=== PATIENT | female | born 1960 | race Caucasian/White ===

== ENCOUNTER 2018-05-30 16:48 | Emergency (ER) | payer OTHER ==
[2018-05-30] MEDS ORDERED: PHENAZOPYRIDINE HCL 100 MG TABLET (FP) PO ONE (17:04)
[2018-05-30 17:05] VITALS: BP 135/83; PULSE 73; TEMP 98.8; BMI 29.0
--- NOTE | 2018-05-30 17:05 | PDOC ---
Rapid Medical Evaluation Medical Evaluation: 05/30/18 17:01 I have performed a brief in-person evaluation of this patient. The patient presents with a chief complaint of: Pelvic pain w/ dysuria x 2 days, similar to prior uti per pt. ? L flank pain. No n/v/f/c. H/o asthma, s/p hysterectomy remotely. No h/o renal stones Pertinent physical exam findings:Stable and in NAD w/ no CVAT I have ordered the following:ua/cx The patient will proceed to the ED for further evaluation. Discharge Disposition - Diagnosis Pelvic pain - Referrals - Patient Instructions - Post Discharge Activity
--- NOTE | 2018-05-30 17:32 | PDOC ---
History of Present Illness - General Chief Complaint: Urinary Problem Stated Complaint: ABDOMINAL PAIN Time Seen by Provider: 05/30/18 17:05 History Source: Patient Exam Limitations: Clinical Condition - History of Present Illness Initial Comments: 05/30/18 17:37 Patient with no significant past medical history presenting with complain of 2 day history of suprapubic and right pelvic pain symptoms of dysuria, urinary frequency and urgency. Patient with history of hysterectomy done 8 years ago .denies any other symptoms. Denies fever, chills, nausea or vomiting Timing/Duration: other (2days) Past History - Past Medical History Allergies/Adverse Reactions: Allergies Allergy/AdvReac Type Severity Reaction Status Date / Time No Known Allergies Allergy Verified 05/30/18 17:01 Home Medications: Ambulatory Orders Ciprofloxacin HCl [Cipro] 500 mg PO BID 5 Days #10 tablet 05/30/18 Phenazopyridine HCl [Pyridium] 100 mg PO TID 2 Days #6 tablet 05/30/18 Asthma: Yes COPD: No - Suicide/Smoking/Psychosocial Hx Smoking History: Never smoked Review of Systems - Review of Systems Able to Perform ROS?: Yes Is the patient limited Swedish proficient: No Constitutional: No: Chills, Diaphoresis, Fever, Loss of Appetite, Malaise, Night Sweats, Weakness, Weight Stable, Unintentional Wgt. Loss, Unexplained wgt Loss, Other HEENTM: No: Eye Pain, Blurred Vision, Tearing, Recent change in vision, Double Vision, Cataracts, Ear Pain, Ocular Prothesis, Ear Discharge, Nose Pain, Nose Congestion, Tinnitus, Nose Bleeding, Hearing Loss, Throat Pain, Throat Swelling , Mouth Pain, Dental Problems, Difficulty Swallowing, Mouth Swelling, Other Respiratory: No: Cough, Orthopnea, Shortness of Breath, SOB with Exertion, SOB at Rest, Stridor, Wheezing, Productive cough, Hemoptysis, Other Cardiac (ROS): No: Chest Pain, Edema, Irregular Heart Rate, Lightheadedness, Palpitations, Syncope, Chest Tightness, Other ABD/GI: No: Abdominal Distended, Abd. Pain w/ defecation, Blood Streaked Bowels , Constipated, Diarrhea, Difficulty Swallowing, Nausea, Poor Appetite, Poor Fluid Intake, Rectal Bleeding, Vomiting, Indigestion, Abdominal cramping, Tarry Stools, Other : Yes: See HPI, Burning, Dysuria, Frequency, Flank Pain (right), Pain ( suprapubic), Urgency. No: Discharge, Incontinence All Other Systems: Reviewed and Negative *Physical Exam - Vital Signs Last Vital Signs Temp Pulse Resp BP Pulse Ox 98.8 F 73 19 135/83 99 05/30/18 17:01 05/30/18 17:01 05/30/18 17:01 05/30/18 17:01 05/30/18 17:01 - Physical Exam Comments: 05/30/18 17:31 GENERAL: Well developed, well nourished. Awake and alert. No acute distress. HEENT: Normocephalic, atraumatic. PERRLA, EOMI. No conjunctival pallor. Sclera are non- icteric. Moist mucous membranes. Oropharynx is clear. NECK: Supple. Full ROM. No JVD. Carotid pulses 2+ and symmetric, without bruits. No thyromegaly. No lymphadenopathy. CARDIOVASCULAR: Regular rate and rhythm. No murmurs, rubs, or gallops. Distal pulses are 2+ and symmetric. PULMONARY: No evidence of respiratory distress. Lungs clear to auscultation bilaterally. No wheezing, rales or rhonchi. ABDOMINAL: moderate tenderness to suprapubic region. mild right flank pain.Soft. Non-distended. No rebound or guarding. No organomegaly. Normoactive bowel sounds. MUSCULOSKELETAL Normal range of motion at all joints. No bony deformities or tenderness. No CVA tenderness. EXTREMITIES: No cyanosis. No clubbing. No edema. No calf tenderness. SKIN: Warm and dry. Normal capillary refill. No rashes. No jaundice. NEUROLOGICAL: Alert, awake, appropriate. Cranial nerves 2-12 intact. No deficits to light touch and temperature in face, upper extremities and lower extremities. No motor deficits in the in face, upper extremities and lower extremities. Normoreflexic in the upper and lower extremities. Normal speech. Toes are down- going bilaterally. Gait is normal without ataxia. PSYCHIATRIC: Cooperative. Good eye contact. Appropriate mood and affect. General Appearance: Yes: Nourished, Appropriately Dressed. No: Apparent Distress Medical Decision Making - Medical Decision Making 05/30/18 17:39 Patient with history of post hysterectomy is and with complain of urinary frequency, dysuria and urgency with suprapubic tenderness for 2 days. Patient also with right flank pain for same. Symptoms likely cystitis versus kidney stone. Urine labs sent and will consider KUB based on urine lab report 05/30/18 18:07 UA with no signifcant findings except hematuria. KUB neg for kidney stone. pt stable for outpatient treatment with urology follow-up as needed *DC/Admit/Observation/Transfer Diagnosis at time of Disposition: Pelvic pain, Dysuria Hematuria Qualifiers: Hematuria type: asymptomatic microscopic Qualified Code(s): R31.21 - Asymptomatic microscopic hematuria - Discharge Dispostion Disposition: HOME Condition at time of disposition: Stable - Prescriptions Prescriptions: Ciprofloxacin HCl [Cipro] 500 mg PO BID 5 Days #10 tablet Phenazopyridine HCl [Pyridium] 100 mg PO TID 2 Days #6 tablet - Referrals Referrals: Erin Rodríguez [Primary Care Provider] - Jimbo Caro [Non Staff, Medical] - - Patient Instructions Printed Discharge Instructions: DI for Dysuria -- Adult Additional Instructions: take medications as prescribed. take motrin as needed for pain. follow-up with referred urologist if no improvement in 3 days - Post Discharge Activity
[2018-05-30] MEDS ORDERED: PHENAZOPYRIDINE HCL 100 MG TABLET (FP) ONE (17:34)
[2018-05-30 17:38] LABS: URINE APPEARANCE CLEAR; URINE BILIRUBIN NEGATIVE (<2.0 mg/dL); URINE COLOR STRAW; URINE GLUCOSE (UA) NEGATIVE (NEGATIVE); URINE KETONE NEGATIVE (NEGATIVE); URINE LEUK ESTERASE NEGATIVE (NEGATIVE); URINE NITRITE NEGATIVE (NEGATIVE); URINE PROTEIN NEGATIVE (NEGATIVE); URINE UROBILINOGEN NEGATIVE mg/dL (0.2-1.0)
[2018-05-30 17:55] LABS: EPI CELLS RARE /HPF (FEW); URINE BACTERIA RARE /hpf (NONE SEEN); URINE MUCUS RARE
== END 2018-05-30 18:12 | disposition home or self-care (01) ==
LOC: JERFT 16:48
DX: R31.21 Asymptomatic microscopic hematuria (principal); R10.2 Pelvic and perineal pain; R30.0 Dysuria
CPT/HCPCS: 74018-TC-FY; 81003; 81015; 87086; 99281-25

== ENCOUNTER 2019-08-07 14:06 | Emergency (ER) | payer OTHER ==
[2019-08-07 14:14] VITALS: BP 113/77; PULSE 62; TEMP 97.5; BMI 31.2
--- NOTE | 2019-08-07 14:17 | PDOC ---
Rapid Medical Evaluation Time Seen by Provider: 08/07/19 14:12 Medical Evaluation: Allergies Allergy/AdvReac Type Severity Reaction Status Date / Time No Known Allergies Allergy Verified 05/30/18 17:01 08/07/19 14:12 I have performed a brief in-person evaluation of this patient. The patient presents with a chief complaint of: R sided ear and throat pain for a week. Pertinent physical exam findings: No tonsillar inflammation, no uvula deviation The patient will proceed to the ED for further evaluation. Discharge Disposition - Diagnosis Pharyngitis - Referrals - Patient Instructions - Post Discharge Activity
--- NOTE | 2019-08-07 14:24 | PDOC ---
History of Present Illness - General Chief Complaint: Sore Throat Stated Complaint: FACIAL PAIN Time Seen by Provider: 08/07/19 14:12 History Source: Patient - History of Present Illness Timing/Duration: reports: week Past History - Past Medical History Allergies/Adverse Reactions: Allergies Allergy/AdvReac Type Severity Reaction Status Date / Time No Known Allergies Allergy Verified 05/30/18 17:01 Home Medications: Ambulatory Orders Ciprofloxacin HCl [Cipro] 500 mg PO BID 5 Days #10 tablet 05/30/18 Phenazopyridine HCl [Pyridium] 100 mg PO TID 2 Days #6 tablet 05/30/18 Asthma: Yes COPD: No - Psycho Social/Smoking Cessation Hx Smoking History: Never smoked Hx Alcohol Use: No Drug/Substance Use Hx: No Review of Systems - Review of Systems Constitutional: Yes: Malaise. No: Chills, Fever HEENTM: Yes: Ear Pain, Throat Pain Respiratory: No: Cough, Shortness of Breath ABD/GI: No: Diarrhea, Vomiting *Physical Exam - Vital Signs Last Vital Signs Temp Pulse Resp BP Pulse Ox 97.5 F L 62 16 113/77 98 08/07/19 14:12 08/07/19 14:12 08/07/19 14:12 08/07/19 14:12 08/07/19 14:12 - Physical Exam General Appearance: Yes: Appropriately Dressed. No: Apparent Distress HEENT: positive: Normal ENT Inspection, Normal Voice, TMs Normal, Pharynx Normal. negative: Scleral Icterus (R), Scleral Icterus (L) Neck: positive: Supple. negative: Lymphadenopathy (R), Lymphadenopathy (L) Respiratory/Chest: positive: Lungs Clear, Normal Breath Sounds. negative: Respiratory Distress Cardiovascular: positive: Regular Rate, S1, S2 Integumentary: positive: Dry, Warm Neurologic: positive: Fully Oriented, Alert, Normal Mood/Affect Medical Decision Making - Medical Decision Making 08/07/19 14:22 58-year-old female, no significant history, here with right ear pain with sore throat and body aches for 1 week. No cough, shortness of breath fever or chills. Taking [id number] meds with minimal relief see exam Viral syndrome Exam wnl No utility in flu swab given duration -Dc w/ supportive tx Discharge - Discharge Information Problems reviewed: Yes Clinical Impression/Diagnosis: Viral syndrome Disposition: HOME - Follow up/Referral - Patient Discharge Instructions Patient Printed Discharge Instructions: DI for Viral Syndrome Print Language: ARABIC - Post Discharge Activity
== END 2019-08-07 14:27 | disposition home or self-care (01) ==
LOC: JERFT 14:06
DX: J02.9 Acute pharyngitis, unspecified (principal); G50.1 Atypical facial pain
CPT/HCPCS: 99281-25

== ENCOUNTER 2020-10-12 14:07 | Emergency (ER) | payer OTHER ==
[2020-10-12 14:21] VITALS: BMI 30.7
[2020-10-12] MEDS ORDERED: ACETAMINOPHEN 500 MG TABLET (FP) PO ONE (16:27)
[2020-10-12 17:03] VITALS: BP 129/64; PULSE 84; TEMP 101.5
[2020-10-12] MEDS ORDERED: ACETAMINOPHEN 325 MG TABLET (FP) ONE (17:41)
== END 2020-10-12 17:55 | disposition home or self-care (01) ==
LOC: JER 14:07
DX: J18.9 Pneumonia, unspecified organism (principal); R50.9 Fever, unspecified
CPT/HCPCS: 71046-TC-FY; 99283-25

== ENCOUNTER 2020-10-16 12:56 | Emergency (ER) | payer OTHER | END 2020-10-16 14:12 | disposition home or self-care (01) | LOC: JVIRT 12:56 | DX: R05 Cough (principal); U07.1 COVID-19 | CPT/HCPCS: C9803; Q3014-GT; U0003 ==

== ENCOUNTER 2021-04-15 08:04 | Emergency (ER) | payer OTHER ==
[2021-04-15 08:12] VITALS: BP 121/72; PULSE 62; TEMP 98.4; BMI 29.9
[2021-04-15] MEDS ORDERED: ACETAMINOPHEN 500 MG TABLET (FP) PO ONE (08:36)
[2021-04-15] MEDS ORDERED: ACETAMINOPHEN 500 MG TABLET (FP) ONE (08:37)
== END 2021-04-15 09:05 | disposition home or self-care (01) ==
LOC: JERFT 08:04
DX: S76.312A Strain of muscle, fascia and tendon of the posterior muscle group at thigh level, left thigh, initial encounter (principal)
CPT/HCPCS: 73552-TC-LT-FY; 99284-25

== ENCOUNTER 2021-08-22 17:53 | Emergency (ER) | payer OTHER ==
[2021-08-22 18:07] VITALS: BP 145/62; PULSE 66; TEMP 98.9; BMI 30.7
[2021-08-22] MEDS ORDERED: ALBUTEROL SO4 2.5/IPRATROPIUM 0.5 INH SOL 3 ML VIAL.NEB. NEB ONE (18:42)
== END 2021-08-22 20:25 | disposition home or self-care (01) ==
LOC: JER 17:53
PROC: 3E0F7GC Introduction of Other Therapeutic Substance into Respiratory Tract, Via Natural or Artificial Opening (ICD-10-PCS; principal; 2021-08-22)
DX: J45.901 Unspecified asthma with (acute) exacerbation (principal); Z11.52 Encounter for screening for COVID-19
CPT/HCPCS: 71046-TC-FY; 87804; 99284-25; C9803; U0003; U0005

== ENCOUNTER 2021-11-04 11:25 | Emergency (ER) | payer OTHER ==
[2021-11-04 11:43] VITALS: BP 140/69; PULSE 60; TEMP 97.7; BMI 28.3
== END 2021-11-04 12:52 | disposition home or self-care (01) ==
LOC: JER 11:25 → JERFT 11:25
DX: B02.9 Zoster without complications (principal)
CPT/HCPCS: 99281-25

== ENCOUNTER 2022-03-17 13:41 | Emergency (ER) | payer OTHER ==
[2022-03-17 13:48] VITALS: BP 135/77; PULSE 69; TEMP 97.8; BMI 32.5
[2022-03-17] MEDS ORDERED: predniSONE 20 MG TABLET (UD) PO ONE (14:35)
[2022-03-17] MEDS ORDERED: predniSONE 20 MG TABLET (UD) ONE (14:36)
== END 2022-03-17 14:40 | disposition home or self-care (01) ==
LOC: JERFT 13:41
DX: J06.9 Acute upper respiratory infection, unspecified (principal)
CPT/HCPCS: 99283-25

== ENCOUNTER 2022-12-30 09:07 | Emergency (ER) | payer OTHER ==
[2022-12-30 09:11] VITALS: BP 151/65; PULSE 62; RESP 18; TEMP 98.1; BMI 26.6
[2022-12-30] MEDS ORDERED: ACETAMINOPHEN 500 MG TABLET (FP) PO ONE (10:42)
[2022-12-30] MEDS ORDERED: AMOX TR/POT CLAV 875MG/125MG TABLETS (FP) PO ONE (10:53)
[2022-12-30] MEDS ORDERED: AMOX TR/POT CLAV 875MG/125MG TABLETS (FP) ONE (11:03)
[2022-12-30] MEDS ORDERED: ACETAMINOPHEN 500 MG TABLET (FP) ONE (11:03)
== END 2022-12-30 11:24 | disposition home or self-care (01) ==
LOC: JERFT 09:07 → JER 09:07 → JERFT 11:24
DX: R22.0 Localized swelling, mass and lump, head (principal); K08.89 Other specified disorders of teeth and supporting structures; K04.7 Periapical abscess without sinus
CPT/HCPCS: 70486-TC; 99284-25

== ENCOUNTER 2023-06-01 09:03 | Emergency (ER) | payer OTHER ==
[2023-06-01 09:07] VITALS: BMI 35.9
[2023-06-01] MEDS ORDERED: FAMOTIDINE 20 MG/50 ML IVPB 20 MG/50 ML MG IVPB ONE ×2 (09:23→09:35)
[2023-06-01] MEDS ORDERED: MAG HYDROX/AL HYDROX/SIMETH 30 ML UNIT-DOSE CUP PO ONE (09:23)
[2023-06-01] MEDS ORDERED: ACETAMINOPHEN 1000 MG/100 ML BAG IVPB ONE (09:23)
[2023-06-01] MEDS ORDERED: ACETAMINOPHEN INJECTION 100 ML IVPB ONE (09:34)
[2023-06-01] MEDS ORDERED: MAG HYDROX/AL HYDROX/SIMETH 30 ML UNIT-DOSE CUP ONE (09:34)
[2023-06-01 10:12] LABS: BASO % 0.7 % (0-2.0); HEMATOCRIT 37.2 % (32.4-45.2); HEMOGLOBIN 12.3 GM/dL (10.7-15.3); LYMPH % 53.2 % (8-40); MCH 28.1 pg (25.7-33.7); MCHC 33.1 g/dl (32.0-36.0); MEAN CELL VOLUME 84.9 fl (80-96); MEAN PLT VOLUME 9.8 fl (7.5-11.1); MONO % 9.8 % (3.8-10.2); NEUT % 34.3 % (42.8-82.8); PLATELET COUNT 196 10^3/uL (134-434); RBC 4.39 M/mm3 (3.60-5.2); RDW 12.8 % (11.6-15.6)
[2023-06-01 10:13] LABS: PH,URINE 5.5 (5.0-8.0); URINE APPEARANCE CLEAR; URINE BILIRUBIN NEGATIVE (NEGATIVE); URINE COLOR YELLOW; URINE GLUCOSE (UA) NEGATIVE (NEGATIVE); URINE KETONE NEGATIVE (NEGATIVE); URINE LEUK ESTERASE NEGATIVE (NEGATIVE); URINE NITRITE NEGATIVE (NEGATIVE); URINE PROTEIN NEGATIVE (NEGATIVE); URINE UROBILINOGEN 0.2 mg/dL (0.2-1.0)
[2023-06-01 10:27] LABS: POTASSIUM 4.5 mmol/L (3.5-5.1)
[2023-06-01 10:30] LABS: ALBUMIN 3.7 g/dl (3.4-5.0); BLOOD UREA NITROGEN 11.5 mg/dL (7-18); CALCIUM 8.7 mg/dL (8.5-10.1)
[2023-06-01 10:33] LABS: CREATININE 0.9 mg/dL (0.55-1.3)
[2023-06-01 10:35] LABS: BILIRUBIN,TOTAL 0.4 mg/dL (0.2-1); TOT PROT 7.3 g/dl (6.4-8.2)
[2023-06-01 13:15] VITALS: BP 138/53; PULSE 74; RESP 16; TEMP 98.1
[2023-06-01] MEDS ORDERED: ALBUTEROL SO4 2.5/IPRATROPIUM 0.5 INH SOL 3 ML VIAL.NEB. NEB ONE (15:04)
== END 2023-06-01 13:20 | disposition home or self-care (01) ==
LOC: JER 09:03
PROC: 3E033GC Introduction of Other Therapeutic Substance into Peripheral Vein, Percutaneous Approach (ICD-10-PCS; principal; 2023-06-01)
PROC: 3E033GC Introduction of Other Therapeutic Substance into Peripheral Vein, Percutaneous Approach (ICD-10-PCS; 2023-06-01)
PROC: 3E0F7GC Introduction of Other Therapeutic Substance into Respiratory Tract, Via Natural or Artificial Opening (ICD-10-PCS; 2023-06-01)
DX: R10.11 Right upper quadrant pain (principal)
CPT/HCPCS: 36415; 71046-TC-FY; 76705-TC; 80053; 81003; 83690; 84484; 85025; 87086; 93005; 93010; 99285-25

== ENCOUNTER 2023-10-12 08:56 | Emergency (ER) | payer OTHER ==
[2023-10-12 08:59] VITALS: BP 156/76; PULSE 68; RESP 18; TEMP 98.5; BMI 32.4
[2023-10-12] MEDS ORDERED: ACETAMINOPHEN 500 MG TABLET (FP) PO ONE (09:41)
[2023-10-12] MEDS ORDERED: ACETAMINOPHEN 500 MG TABLET (FP) ONE (09:48)
== END 2023-10-12 10:18 | disposition home or self-care (01) ==
LOC: JER 08:56 → JERFT 08:56
DX: R05.9 Cough, unspecified (principal); M79.10 Myalgia, unspecified site; R51.9 Headache, unspecified; R68.83 Chills (without fever); R06.9 Unspecified abnormalities of breathing; J10.1 Influenza due to other identified influenza virus with other respiratory manifestations; Z20.822 Contact with and (suspected) exposure to COVID-19
CPT/HCPCS: 0241U-QW; 99283-25

== ENCOUNTER 2023-10-27 07:51 | Emergency (ER) | payer OTHER ==
[2023-10-27 07:57] VITALS: BP 138/76; PULSE 67; RESP 18; TEMP 98; BMI 32.4
[2023-10-27] MEDS ORDERED: ACETAMINOPHEN 500 MG TABLET (FP) PO ONE (08:36)
[2023-10-27] MEDS ORDERED: ACETAMINOPHEN 500 MG TABLET (FP) ONE (08:55)
[2023-10-27] MEDS ORDERED: KETOROLAC TROMETHAMINE 30 MG/1 ML VIAL IVPUSH ONE (09:08)
[2023-10-27 09:25] LABS: BASO % 1.3 % (0-2.0); EOS % 1.1 % (0-4.5); HEMATOCRIT 36.9 % (32.4-45.2); HEMOGLOBIN 12.2 GM/dL (10.7-15.3); LYMPH % 39.9 % (8-40); MCH 27.9 pg (25.7-33.7); MCHC 33.2 g/dl (32.0-36.0); MEAN CELL VOLUME 83.9 fl (80-96); MEAN PLT VOLUME 9.2 fl (7.5-11.1); MONO % 9.4 % (3.8-10.2); NEUT % 48.3 % (42.8-82.8); PLATELET COUNT 217 10^3/uL (134-434); RDW 12.8 % (11.6-15.6); WHITE BLOOD COUNT 3.1 K/mm3 (4.0-10.0)
[2023-10-27 09:41] LABS: CHLORIDE 109 mmol/L (98-107); POTASSIUM 3.9 mmol/L (3.5-5.1); SODIUM 139 mmol/L (136-145)
[2023-10-27 09:43] LABS: ALBUMIN 3.4 g/dl (3.4-5.0); ANION GAP 7 mmol/L (4-13); CALCIUM 8.6 mg/dL (8.5-10.1); CO2 23 mmol/L (21-32); GLUCOSE,RANDOM 112 mg/dL (74-106)
[2023-10-27 09:44] LABS: BLOOD UREA NITROGEN 15.5 mg/dL (7-18)
[2023-10-27 09:47] LABS: CREATININE 0.7 mg/dL (0.55-1.3); SGOT/AST 19 U/L (15-37); SGPT/ALT 22 U/L (13-61)
[2023-10-27 09:48] LABS: BILIRUBIN,TOTAL 0.5 mg/dL (0.2-1); TOT PROT 7.1 g/dl (6.4-8.2)
[2023-10-27 09:50] LABS: ALK PHOS 104 U/L (45-117)
[2023-10-27 10:03] LABS: ERYTHROCYTE SEDIMENTATION RATE 19 mm/hr (0-30)
== END 2023-10-27 11:42 | disposition home or self-care (01) ==
LOC: JER 07:51
DX: M25.561 Pain in right knee (principal); R22.41 Localized swelling, mass and lump, right lower limb; M70.41 Prepatellar bursitis, right knee
CPT/HCPCS: 36415; 73562-TC-RT-FY; 76882-TC-RT; 80053; 85025; 85651; 86140; 99285-25

== ENCOUNTER 2024-08-07 20:49 | Emergency (ER) | payer SELFPAY ==
[2024-08-07 21:06] VITALS: BP 130/96; PULSE 86; RESP 18; TEMP 98.4; BMI 30.4
[2024-08-08] MEDS ORDERED: ALBUTEROL SO4 2.5/IPRATROPIUM 0.5 INH SOL 3 ML VIAL.NEB. NEB ONE (00:19)
[2024-08-08] MEDS: ALBUTEROL SO4 2.5/IPRATROPIUM 0.5 INH SOL 3 ML VIAL.NEB. NEB ONE (00:34)
[2024-08-08 00:36] LABS: EOS % 2.8 % (0-4.5); HEMATOCRIT 32.6 % (32.4-45.2); LYMPH % 38.6 % (8-40); MCH 28.5 pg (25.7-33.7); MCHC 33.6 g/dl (32.0-36.0); MEAN CELL VOLUME 84.7 fl (80-96); MONO % 14.7 % (3.8-10.2); NEUT % 42.9 % (42.8-82.8); PLATELET COUNT 157 10^3/uL (134-434); RBC 3.85 M/mm3 (3.60-5.2); RDW 12.8 % (11.6-15.6); WHITE BLOOD COUNT 3.4 K/mm3 (4.0-10.0)
[2024-08-08 00:45] LABS: INR 0.88 (0.83-1.09)
[2024-08-08 00:48] LABS: ACTIVATED PTT 33.1 SECONDS (25.2-36.5)
[2024-08-08 00:58] LABS: POTASSIUM 4.3 mmol/L (3.5-5.1)
[2024-08-08 01:00] LABS: ALBUMIN 3.5 g/dl (3.4-5.0); BLOOD UREA NITROGEN 13.7 mg/dL (7-18); CALCIUM 8.7 mg/dL (8.5-10.1)
[2024-08-08 01:04] LABS: CREATININE 0.8 mg/dL (0.55-1.3)
[2024-08-08 01:05] LABS: BILIRUBIN,TOTAL 0.4 mg/dL (0.2-1); TOT PROT 6.7 g/dl (6.4-8.2)
== END 2024-08-08 01:28 | disposition home or self-care (01) ==
LOC: JER 20:49
PROC: 3E0F7GC Introduction of Other Therapeutic Substance into Respiratory Tract, Via Natural or Artificial Opening (ICD-10-PCS; principal; 2024-08-07)
DX: R06.02 Shortness of breath (principal); R07.89 Other chest pain; R09.81 Nasal congestion; R50.9 Fever, unspecified; M79.10 Myalgia, unspecified site; U07.1 COVID-19
CPT/HCPCS: 0241U-QW; 36415; 71046-TC-FY; 80053; 83735; 84484; 85025; 85610; 85730; 86850; 86900; 86901; 99284-25